=== PATIENT | male | born 1995 | race Caucasian/White ===

== ENCOUNTER 2023-08-16 15:21 | Emergency (ER) | payer BC | END 2023-08-16 16:05 | disposition short-term general hospital (02) | LOC: ED 15:21 | DX: N50.819 Testicular pain, unspecified (principal) ==

== ENCOUNTER → 2024-07-02 | Outpatient (CLI) | payer BC | LOC: RAD 15:45 | DX: M54.50 Low back pain, unspecified (principal); Z91.81 History of falling; Z87.828 Personal history of other (healed) physical injury and trauma ==